=== PATIENT | male | born 1975 | race Hispanic/Latino ===

== ENCOUNTER 2016-09-28 18:14 | Emergency (ER) | payer OTHER, SELFPAY ==
[2016-09-28] MEDS ORDERED: Amoxicillin/Potassium Clav 875 MG TAB ONE (18:52)
== END 2016-09-28 19:00 | disposition home or self-care (01) ==
LOC: NAV ERS 18:14
DX: M70.22 Olecranon bursitis, left elbow (principal)
CPT/HCPCS: 99283